=== PATIENT | female | born 1975 | race Caucasian/White ===

== ENCOUNTER 2023-04-17 17:00 | Outpatient (REF) | payer BC, SELFPAY ==
--- NOTE | ~2023-04-17 | MR_ITS ---
EXAMINATION: MR LUMBAR SPINE WITHOUT CONTRAST CLINICAL INFORMATION: Right L5 radiculopathy, foot drop, weakness COMPARISON: None TECHNIQUE: MRI of the lumbar spine was obtained using routine sequences without contrast. FINDINGS: Normal anatomic alignment. No suspicious marrow signal or focal osseous lesion. No significant endplate marrow edema. Small L1-L2 endplate Schmorl's nodes. The vertebral body heights are maintained. L4-L5 disc desiccation The conus medullaris terminates at the level of L2. The distal spinal cord is normal in appearance. The cauda equina nerve roots appear normal. No significant abnormalities of the paraspinal musculature. Limited evaluation of the intra-abdominal structures without significant abnormalities. The abdominal aorta is of normal contour and caliber.. 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 SPINAL LEVELS: T12-L1: No significant spinal canal or neural foraminal narrowing L1-L2: No significant spinal canal or neuroforaminal narrowing. L2-L3: No significant spinal canal or neuroforaminal narrowing. L3-L4: No significant spinal canal or neuroforaminal narrowing. L4-L5: No significant spinal canal or neuroforaminal narrowing. Shallow disc bulge with small superimposed central protrusion with slight caudal migration of disc material. Mild facet arthropathy. L5-S1: No significant spinal canal or neuroforaminal narrowing. MR/MR lumbar spine wo con IMPRESSION: Minimal degenerative changes of the lumbar spine without significant spinal canal stenosis, neural foraminal narrowing, or evidence of nerve impingement.
== END 2023-04-17 17:01 | disposition home or self-care (01) ==
LOC: HO.MRI 17:00
PROVIDERS: Visit Provider Internal Medicine
DX: M54.16 Radiculopathy, lumbar region (principal); M62.81 Muscle weakness (generalized); M21.379 Foot drop, unspecified foot
CPT/HCPCS: 72148

== ENCOUNTER 2023-10-11 08:47 | Emergency (ER) | payer OTHER, SELFPAY ==
--- NOTE | ~2023-10-11 | XR_ITS ---
EXAMINATION: XR HAND, RIGHT CLINICAL INFORMATION: Fracture COMPARISON: Prior x-ray same day earlier TECHNIQUE: PA, lateral, and oblique views of the right hand. FINDINGS: Reduced fracture of the left neck of the fifth metacarpal, cast in place. No new fractures. Residual anterior angulation at the fracture site. XR/XR hand RT min 3V IMPRESSION: * Partially reduced angulated boxer fracture. * Cast in place.
--- NOTE | ~2023-10-11 | XR_ITS ---
EXAMINATION: XR HAND, RIGHT CLINICAL INFORMATION: Injury COMPARISON: None available. TECHNIQUE: PA, lateral, and oblique views of the right hand. FINDINGS: Comminuted angulated fracture of the neck of the fifth metacarpal, boxer's fracture. This does not extend into an articular surface. There is surrounding soft tissue swelling. No other fractures. XR/XR hand RT min 3V IMPRESSION: Comminuted angulated Boxer's fracture of the neck of the fifth metacarpal.
[2023-10-11 08:57] VITALS: BP 135/83; PULSE 85; RESP 16; TEMP 36.8; O2SAT 99; BMI 21.8
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
[2023-10-11] MEDS: oxyCODONE HCl Immed Release 5 MG TABLET PO (09:56)
[2023-10-11] MEDS: Lidocaine HCl 1 % MPF 5 ML VIAL 10 ML SUBCUT (09:59)
[2023-10-11] MEDS: Ondansetron ODT 4 MG TAB.RAPDIS TRANSLINGU (09:59)
== END 2023-10-11 11:32 | disposition home or self-care (01) ==
PROVIDERS: Emergency Provider Student in an Organized Health Care Education/Training Program; PCP Family Medicine
DX: S62.336A Displaced fracture of neck of fifth metacarpal bone, right hand, initial encounter for closed fracture (principal); W22.09XA Striking against other stationary object, initial encounter; Y93.9 Activity, unspecified; Y92.9 Unspecified place or not applicable; Y99.9 Unspecified external cause status
CPT/HCPCS: 26605; 73130; 99283; 99284

== ENCOUNTER 2023-10-16 13:20 | Outpatient (AMB) | payer OTHER, SELFPAY ==
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
== END 2023-10-16 14:23 | disposition home or self-care (01) ==
PROVIDERS: PCP Family Medicine; Visit Provider Physician Assistant
DX: S62.316A Displaced fracture of base of fifth metacarpal bone, right hand, initial encounter for closed fracture (principal); W22.09XA Striking against other stationary object, initial encounter
CPT/HCPCS: 26600; 99204

== ENCOUNTER → 2023-10-16 13:20 | Outpatient (BNVA) | payer OTHER, SELFPAY | PROVIDERS: PCP Family Medicine; Visit Provider Physician Assistant | DX: S62.336A Displaced fracture of neck of fifth metacarpal bone, right hand, initial encounter for closed fracture (principal) | CPT/HCPCS: 26600; 29125 ==

== ENCOUNTER 2023-10-22 08:36 | Day surgery (SDC) | payer OTHER, SELFPAY ==
--- NOTE | 2023-10-21 11:55 | HO.ANESPROP2 ---
Documented by User: Gisell Simons NP 10/21/23 11:55 HPI - Anesthesia Eval Consult details Narrative: 47yo F for Right Fifth Metacarpal ORIF vs CR[facility] Active Problems Active Problems: All Active Problems (Updated 10/19/23 @ 22:16 by Chaya Booker PA-C) Gifty's metacarpal fracture, neck, closed (Acute) Past Medical History Medical History Menopause Surgical History Surgical History S/P cervical disc replacement (~2017) Hx of appendectomy (~1998) Social History Social History Patient Tobacco Use Status: Former Tobacco user Are you DNR?: No Advance Directives: No Advance Directives Information Provided: Yes Nutrition Risks: No Nutritional Risk FDLMP: been over 1-2 years Current occupational status: employed Meds Allergies Allergy/AdvReac Type Severity Reaction Status Date / Time levofloxacin [Levaquin] Allergy Unknown rash Verified 10/22/23 08:52 Home Medications Medication Instructions Recorded Confirmed Last Taken Type No Known Home Meds 10/19/23 10/22/23 Unknown History Assessment and Plan Assessment Anesthesia Assessment: Chart Reviewed Documented by User: Connie Burgos MD 10/22/23 09:34 PMFSH Past Medical History Medical History Menopause Family History Family history of problems with anesthesia: No Surgical History Surgical History S/P cervical disc replacement (~2017) Hx of appendectomy (~1998) Social History Social History Patient Tobacco Use Status: Former Tobacco user Are you DNR?: No Advance Directives: No Advance Directives Information Provided: Yes Nutrition Risks: No Nutritional Risk FDLMP: been over 1-2 years Current occupational status: employed Meds Allergies Allergy/AdvReac Type Severity Reaction Status Date / Time levofloxacin [Levaquin] Allergy Unknown rash Verified 10/22/23 08:52 Home Medications Medication Instructions Recorded Confirmed Last Taken Type No Known Home Meds 10/19/23 10/22/23 Unknown History Exam Airway Mallampati Class: II TM Dist: >3cm Neck ROM: Full Heart: rrr Lungs: cta Assessment and Plan Assessment Anesthesia Assessment: Anesthesia Plan Discussed Final Anesthetic Review Family History of Problems with Anesthesia: No NPO: Yes ASA Class: I Final Preanesthetic Review: No Changes in Pt Med Stat, Meds/Allgs Chart Reviewed, Consent Obtained/Reviewed and Anes Risks/Benef Reviewed Patient Risk: Low Procedure Risk: Low Anesthetic Plan Anesthetic Plan: GA Disposition: Standard PACU
--- NOTE | ~2023-10-22 | FL_ITS ---
EXAMINATION: XR FLUOROSCOPY WITH IMAGES CLINICAL INFORMATION: Fifth metacarpal ORIF, right. COMPARISON: None available. TECHNIQUE: Fluoroscopy Supervised By: Dr. Veronica Fragoso. Fluoroscopy Time: 10.92 seconds. Cumulative Dose: 0.3260 mGy. DAP: 0.0197 Gycm2. Images: 2. FINDINGS: Images demonstrate a wire or pin transfixing the fracture of the distal shaft of the right fifth metacarpal bone with improved alignment. FL/FL guidance in OR IMPRESSION: Fluoroscopic guidance for ORIF of right fifth metacarpal fracture.
[2023-10-22 09:11] VITALS: BP 106/74; PULSE 74; RESP 18; TEMP 36.8; O2SAT 99
[2023-10-22 09:12] VITALS: BMI 21.9
[2023-10-22 13:20] VITALS: BP 126/79; PULSE 64; RESP 16; TEMP 36.4; O2SAT 100
[2023-10-22 13:25] VITALS: BP 132/74; PULSE 61; RESP 16; O2SAT 100
[2023-10-22 13:30] VITALS: BP 129/63; PULSE 63; RESP 16; O2SAT 98
[2023-10-22 13:35] VITALS: BP 133/65; PULSE 77; RESP 16; O2SAT 98
[2023-10-22 13:50] VITALS: BP 120/72; PULSE 62; RESP 16; TEMP 36.1; O2SAT 98
--- NOTE | 2023-10-22 13:53 | MHC.SHP ---
Pre-Procedural Eval Section A Date of Service: 10/22/23 Changes since office visit: No Cold of Flu in the past 2 weeks, No New Medical Problems, No Changes in Medication and No Patient answered all questions The History & Physical has been completed within 30 days and I have reviewed it.: Yes Section B Chief Complaint: Unspecified fracture of fifth metacarpal bone Allergies: Allergies Allergy/AdvReac Type Severity Reaction Status Date / Time levofloxacin [Levaquin] Allergy Unknown rash Verified 10/22/23 08:52 Plan I have reviewed the history and physical and performed a pertinent physical examination on my patient. No changes have occurred unless specified. Time Spent With Patient Time: Total time managing care of this patient today ____ minutes.
--- NOTE | 2023-10-22 13:53 | W.PM.OPN ---
Operative Note Operative Note Date of Service: 10/22/23 Narrative: Operative Note Narrative: Preop diagnosis: 1. Right 5th Metacarpal shaft fracture Postop diagnosis: Same Procedure: 1. right 5th Metacarpal shaft fracture closed reduction percutaneous pinning 2. Ulnar nerve block Surgeon: Veronica Fragoso MD Anesthesia: General Anesthesia Findings: Metacarpal fracture Implants: 0.054 K-wires times 1 Tourniquet time: None EBL: Minimal Specimen: None Drains: None Complications: None Disposition: Brought to the recovery room in stable condition Plan: Follow-up in 10-14 days for a wound check, postop radiographs and for placement in a short-arm cast Anticipate K-wire removal in 4 weeks based on interval bony healing Educate the patient that full fracture healing anticipated in approximately 8-12 weeks. Indications: The patient is 47 years old with a right 5th metacarpal shaft fracture . The risks and benefits of operative treatment, including but not limited to risk of damage to blood vessels, nerves, tendons, infection, recurrence, delayed or nonunion of fracture, persistent pain or numbness, incomplete resolution of preoperative symptoms, or need for further surgery were discussed with the patient and they wished to proceed with surgery. Procedure: Once consent was obtained patient was brought back to the operating suite and placed in the operating table in a supine position. . Perioperative antibiotics and general anesthesia was administered by the anesthesia team. A tourniquet was applied to the proximal aspect of the right upper extremity and the limb was prepped and draped in a standard surgical fashion. Tourniquet was not inflated during the case. The FluoroScan was used during the case to assist with our fracture reduction and placement of all implants. A closed reduction was performed on the patient's right 5th metacarpal shaft fracture. I placed a single 0.05 for K-wire retrograde through the head of the 5th metacarpal extending proximally across the fracture site to the base of the metacarpal. Fracture alignment was assessed for both angular and rotational malalignment. Once satisfied with our fracture reduction and implant placement, the K-wires were bent and cut short and pin caps applied. Final fluoroscopic images were then obtained. The wounds were copiously irrigated with normal saline. An ulnar nerve block was then performed by infiltrating about the ulnar nerve at the wrist with some 0.5% plain Marcaine for postop pain control. A Sterile dressing and short volar splint was applied. The patient appears to have tolerated the procedure well and with no complications. All digits were well vascularized at the conclusion of the case.
== END 2023-10-22 14:47 | disposition home or self-care (01) ==
PROVIDERS: PCP Family Medicine; Visit Provider Orthopaedic Surgery
PROC: (CPT 26615; principal; 2023-10-22 10:20)
DX: S62.326A Displaced fracture of shaft of fifth metacarpal bone, right hand, initial encounter for closed fracture (principal); W22.09XA Striking against other stationary object, initial encounter; Y93.89 Activity, other specified; Y92.9 Unspecified place or not applicable; Y99.8 Other external cause status; Z98.890 Other specified postprocedural states
CPT/HCPCS: 26608; J0131; J0690; J1100; J2371; J2405; J2704; J2795; J3010

== ENCOUNTER → 2023-10-22 08:36 | Outpatient (BNV) | payer OTHER, SELFPAY | PROVIDERS: PCP Family Medicine; Visit Provider Orthopaedic Surgery | DX: S62.337A Displaced fracture of neck of fifth metacarpal bone, left hand, initial encounter for closed fracture (principal) | CPT/HCPCS: 26608 ==

== ENCOUNTER 2023-11-04 10:50 | Outpatient (REF) | payer OTHER, SELFPAY ==
--- NOTE | ~2023-11-04 | XR_ITS ---
EXAMINATION: XR HAND, RIGHT CLINICAL INFORMATION: Pain in right hand COMPARISON: None available. TECHNIQUE: PA, lateral, and oblique views of the right hand. FINDINGS: Interval placement of K wire fifth metacarpal transfixing an oblique fracture of the distal shaft of the metacarpal. This is not extend into the articular surface. Alignment is near-anatomic. Negative ulnar variance is noted. XR/XR hand RT min 3V IMPRESSION: Internal fixation with K wire of fracture of the distal shaft of the fifth metacarpal.
== END 2023-11-04 10:51 | disposition home or self-care (01) ==
LOC: HO.HOSX 10:50
PROVIDERS: Visit Provider Orthopaedic Surgery
DX: S62.336D Displaced fracture of neck of fifth metacarpal bone, right hand, subsequent encounter for fracture with routine healing (principal)
CPT/HCPCS: 73130

== ENCOUNTER 2023-11-04 14:21 | Outpatient (AMB) | payer OTHER, SELFPAY ==
--- NOTE | 2023-11-04 14:38 | MHC.OFFVIS ---
Intake Intake Visit Reasons: PO-Rt 5th Metacarpal ORIF vs CRPP 10/22/23 Intake Note: Daniela 47 yr old female presents today for her P/O visit f or her right 5th MC ORIF from DOS 10/22/23. States she has very little pain however has concern due to a little redness by her pin site. Xrays updated in office. Allergies levofloxacin [Levaquin] Allergy (Unknown, Verified 11/04/23 14:41) rash HPI PO-Rt 5th Metacarpal ORIF vs CRPP 10/22/23 HPI Details Daniela is a 47 year old right hand dominant woman who presents S/P right 5th metacarpal shaft CRPP, DOS: 10/22/23. She says she is doing well and has little pain, but she is concerned about some redness near her pin site. She says she was doing some cardio and she did get pretty sweaty. She says she is in the process of a divorce and has difficulties with her shared insurance coverage at this time. [facility] Medical History Menopause Surgical History S/P cervical disc replacement (~2017) Hx of appendectomy (~1998) Social History Patient Tobacco Use Status: Former Tobacco user Current occupational status: employed Review of Systems Const All systems reviewed & are unremarkable except as noted in HPI and below Physical Exam Const General: no acute distress and alert Orientation/consciousness: patient oriented x3 Neuro General: patient oriented x3 Extrem Other: The patient was alert oriented and in no acute distress The pin site is healing well with no swelling or drainage. She does have some mild erythema just proximal to the K-wire. Again recalling the history she did some cardio and got pretty sweaty Initially she had some stiffness in the middle, ring, and small finger PIP joints. We worked on ROM exercises today in clinic for at least 10 minutes Before leaving clinic her PIP motion was improved. No rotational mal-alignment Sensation is intact Cap refill is brisk Radiographs: 3 views of the right hand, with attention to the small finger, were taken and viewed by me today in clinic. They show a 5th metacarpal shaft fracture with satisfactory fracture reduction and position of single K-wire. There is some early evidence of interval bony healing seen on the oblique view Psych Appearance: grossly normal Affect: normal affect Attitude: cooperative Assessment & Plan Assessment & Plan (1) Yola metacarpal fracture, neck, closed: Code(s): S62.339A - Displaced fracture of neck of unspecified metacarpal bone, initial encounter for closed fracture Qualifiers: Encounter type: initial encounter Qualified Code(s): S62.339A - Displaced fracture of neck of unspecified metacarpal bone, initial encounter for closed fracture Plan Assessment & plan: 1. Right 5th metacarpal shaft fracture, S/P CRPP Original date of injury was 10/09/2023 DOS: 10/22/23 The patient appears to be doing well post-operatively I educated her about the post-operative course I explained the signs and symptoms of infection, if the patient develops any new or worsening erythema, drainage, pain, or warmth they should contact the clinic or attend the ED. Out of an abundance of caution due to some erythema about the pin-site, and her history of doing some cardio and getting sweaty with the cast on, she was placed on a 7-day course of PO Augmentin today. She was placed in a new finger spica cast, to be worn for the next 2 weeks. I discussed activity modifications, she is to lift nothing heavier than a cellphone for the next 4 weeks We worked on ROM exercises for more than 15 minutes today in clinic She will perform gentle finger ROM exercises at home I asked her to avoid any cardio exercises where she is likely to get sweaty while she has a pin in place and is in a cast. I explained that it will like take another 6-10 weeks for full healing She will follow up in 2 weeks for a ROM check, with X-rays, 3V R SF. Anticipate K-wire removal depending on bony healing Scribed for Veronica Fragoso MD by Abdirahman Siu, medical claims processor, on 11/04/23 at 2:52 PM, EST. Orders: Orders XR hand RT min 3V Today M79.641 - Pain in right hand Medications: New amoxicillin-pot clavulanate 875-125 mg 1 tab PO Q12H 14 tabs 0RF Coding Level of Care Code Global (57333) Diagnoses Closed boxer's fracture, initial encounter S62.339A Encounter type: initial encounter
== END 2023-11-04 15:52 | disposition home or self-care (01) ==
PROVIDERS: PCP Family Medicine; Visit Provider Orthopaedic Surgery
DX: S62.339A Displaced fracture of neck of unspecified metacarpal bone, initial encounter for closed fracture (principal)
CPT/HCPCS: 99024

== ENCOUNTER 2023-11-18 10:03 | Outpatient (REF) | payer OTHER, SELFPAY ==
--- NOTE | ~2023-11-18 | XR_ITS ---
EXAMINATION: XR HAND, RIGHT CLINICAL INFORMATION: Pain in right hand COMPARISON: Right hand 11/04/2023 TECHNIQUE: PA, lateral, and oblique views of the right hand. FINDINGS: K wire is seen in the fifth metacarpal transfixing a oblique fracture the distal shaft of the metacarpal. This is not extend into the articular surface. Alignment is near-anatomic. There is no change in position or alignment of the fracture fragments. The fracture lines are slightly blurred compared to the prior study. No kayla callus formation. Negative ulnar variance is noted. XR/XR hand RT min 3V IMPRESSION: Internal fixation with K wire of fracture of the distal shaft of the fifth metacarpal. No change in position or alignment of the fracture fragments.
== END 2023-11-18 10:04 | disposition home or self-care (01) ==
LOC: HO.HOSX 10:03
PROVIDERS: Visit Provider Orthopaedic Surgery
DX: M79.641 Pain in right hand (principal)
CPT/HCPCS: 73130

== ENCOUNTER 2023-11-18 11:24 | Outpatient (AMB) | payer OTHER, SELFPAY ==
--- NOTE | 2023-11-18 11:40 | A.OFFVIS_ITS ---
Intake Intake Visit Reasons: PO-Rt 5th Metacarpal ORIF vs CRPP 10/22/23 Intake Note: Daniela 47 yr old female presents today for her Post op visit for her post op visit for her Right 5th Metacarpal ORIF vs CRPP 10/22/23. Dressing removed in office and xrays updated. Allergies levofloxacin [Levaquin] Allergy (Unknown, Verified 11/18/23 11:59) rash HPI PO-Rt 5th Metacarpal ORIF vs CRPP 10/22/23 HPI Details Daniela is a 47 year old right hand dominant woman who presents S/P right 5th metacarpal shaft CRPP, DOS: 10/22/23. She says she is doing well but is concerned about some increased pain and redness near her pin site. She denies any drainage, fever, or chills. She has completed her course of PO Abx. She wants to know if she can return to exercising soon. [facility] Medical History Menopause Surgical History S/P cervical disc replacement (~2017) Hx of appendectomy (~1998) Social History Patient Tobacco Use Status: Former Tobacco user Current occupational status: employed Review of Systems Const All systems reviewed & are unremarkable except as noted in HPI and below Physical Exam Const General: no acute distress and alert Orientation/consciousness: patient oriented x3 Neuro General: patient oriented x3 Extrem Other: The patient was alert oriented and in no acute distress The pin site is healing well with no swelling or drainage. She does have some mild erythema just proximal to the K-wire. K-wire removed today, which she tolerated well She had some stiffness in her ring & small fingers We worked on ROM exercises and she will perform these at home No rotational mal-alignment Minimal tenderness over the fracture site. Sensation is intact Cap refill is brisk Radiographs: 3 views of the right hand, with attention to the small finger, were taken and viewed by me today in clinic. They show a 5th metacarpal shaft fracture with satisfactory fracture reduction, evidence of interval bony healing, and position of single K-wire. Psych Appearance: grossly normal Affect: normal affect Attitude: cooperative Assessment & Plan Assessment & Plan (1) Gifty's metacarpal fracture, neck, closed: Code(s): S62.339A - Displaced fracture of neck of unspecified metacarpal bone, initial encounter for closed fracture Qualifiers: Encounter type: initial encounter Qualified Code(s): S62.339A - Displaced fracture of neck of unspecified metacarpal bone, initial encounter for closed fracture Plan Assessment & plan: 1. Right 5th metacarpal shaft fracture, S/P CRPP Original date of injury was 10/09/2023 DOS: 10/22/23 K-wire removed: 11/18/23 The patient appears to be doing well post-operatively I educated her about the post-operative course I explained the signs and symptoms of infection, if the patient develops any new or worsening erythema, drainage, pain, or warmth they should contact the clinic or attend the ED. She was placed in a new finger spica splint, to be worn with daily activity and out of the house for the next 2 weeks She can remove this splint at home, when at rest or to work on ROM I discussed activity modifications, she is to lift nothing heavier than a cellphone for the next 2 weeks She will perform gentle finger ROM exercises at home I asked her to avoid any cardio exercises until her pin-site closes. She is still to avoid any weight-lifting exercises at this time I explained that it will like take another 4-8 weeks for full healing She will follow up in 2 weeks for a ROM check, with X-rays, 3V R SF. Scribed for Veronica Fragoso MD by Abdirahman Siu, medical assistant float, on 11/18/23 at 11:45 AM, EST. Orders: Orders XR hand RT min 3V Today M79.641 - Pain in right hand Coding Level of Care Code Global (29031) Diagnoses Closed boxer's fracture, initial encounter S62.339A Encounter type: initial encounter
== END 2023-11-18 12:00 | disposition home or self-care (01) ==
PROVIDERS: PCP Family Medicine; Visit Provider Orthopaedic Surgery
DX: S62.339A Displaced fracture of neck of unspecified metacarpal bone, initial encounter for closed fracture (principal)
CPT/HCPCS: 99024

== ENCOUNTER 2023-11-24 10:02 | Outpatient (AMB) | payer OTHER, SELFPAY ==
--- NOTE | 2023-11-24 10:07 | MHC.OFFVIS ---
Intake Intake Visit Reasons: PO-Rt 5th Metacarpal ORIF vs CRPP 10/22/23 Intake Note: Daniela 47 yr old female presents today for her Post op visit for her post op visit for her Right 5th Metacarpal ORIF vs CRPP 10/22/23. States she is having difficulty with active range of motion in pinky. Allergies levofloxacin [Levaquin] Allergy (Unknown, Verified 11/24/23 10:14) rash HPI PO-Rt 5th Metacarpal ORIF vs CRPP 10/22/23 HPI Details Daniela is a 47 year old right hand dominant woman who presents S/P right 5th metacarpal shaft CRPP, DOS: 10/22/23. She returns today as she is concerned about her lack of small finger ROM. She reports doing all her exercises at home but she is still unable to move her finger the way she wants. She is concerned about her finger swelling. She reports falling on 11/19/23 when getting out of her car and says she struck her hand, but denies any other injury. She says her pin-site gets more red at night time. She says she is currently on Flagyl Abx for an unrelated infection and she denies any drainage from her finger. [facility] Medical History Menopause Surgical History S/P cervical disc replacement (~2017) Hx of appendectomy (~1998) Social History Patient Tobacco Use Status: Former Tobacco user Current occupational status: employed Physical Exam Const General: no acute distress and alert Orientation/consciousness: patient oriented x3 Neuro General: patient oriented x3 Extrem Other: The patient was alert oriented and in no acute distress The pin site is well-healed with no erythema, swelling or drainage. She had some stiffness in her 5th MCP joint, with her ROM being 0-75 degrees When bringing her fingers into extension, she has an ~30 degree extension lag at the small finger PIP joint, which is easily reducible We worked on ROM exercises and she will perform these at home No rotational mal-alignment Minimal tenderness over the fracture site. Sensation is intact Cap refill is brisk Radiographs: 3 views of the right hand, with attention to the small finger, were taken and viewed by me today in clinic. They show a 5th metacarpal shaft fracture with satisfactory fracture alignment, unchanged from 11/18/23, and some evidence of interval bony healing. Psych Appearance: grossly normal Affect: normal affect Attitude: cooperative Assessment & Plan Assessment & Plan (1) Boxer's metacarpal fracture, neck, closed: Code(s): S62.339A - Displaced fracture of neck of unspecified metacarpal bone, initial encounter for closed fracture Qualifiers: Encounter type: initial encounter Qualified Code(s): S62.339A - Displaced fracture of neck of unspecified metacarpal bone, initial encounter for closed fracture Plan Assessment & plan: 1. Right 5th metacarpal shaft fracture, S/P CRPP Original DOI was 10/09/23 DOS: 10/22/23 K-wire removed: 11/18/23 The patient appears to be doing well post-operatively I educated her about the post-operative course I explained the signs and symptoms of infection, and she knows to contact the clinic if she has any concerns. She has a Velcro wrist splint that she can wear when out at the store for another week or so or in crowds. I did explain that for the most part she does not need to wear the splint any longer. I discussed activity modifications, she is to lift nothing heavier than a cellphone for the next 2 weeks She will perform gentle finger ROM exercises at home, 20x daily I ordered OT hand therapy to work on finger ROM She is still to avoid any weight-lifting exercises at this time She will follow up in 3 weeks for a ROM check, No x-rays unless she has pain Scribed for Veronica Fragoso MD by Abdirahman Siu medical pathology teacher, on 11/24/23 at 10:35 AM, EST. Orders: Orders XR hand RT min 3V Today M79.641 - Pain in right hand OT Evaluation and Treatment Today S62.339A - Displaced fracture of neck of unspecified metacarpal bone, initial encounter for closed fracture Coding Level of Care Code Global (82729) Diagnoses Closed boxer's fracture, initial encounter S62.339A Encounter type: initial encounter
== END 2023-11-24 11:12 | disposition home or self-care (01) ==
PROVIDERS: PCP Family Medicine; Visit Provider Orthopaedic Surgery
DX: S62.339A Displaced fracture of neck of unspecified metacarpal bone, initial encounter for closed fracture (principal)
CPT/HCPCS: 99024

== ENCOUNTER 2023-11-24 10:02 | Outpatient (REF) | payer OTHER, SELFPAY ==
--- NOTE | ~2023-11-24 | XR_ITS ---
EXAMINATION: XR HAND, RIGHT CLINICAL INFORMATION: Pain. COMPARISON: Radiograph right hand 11/18/2023. TECHNIQUE: PA, lateral, and oblique views of the right hand. FINDINGS: Interval removal of K wire at the level of the fifth metacarpal fracture. Stable appearance and alignment of the comminuted distal fifth metacarpal fracture with mild radial displacement of the distal fragment. Similar degree of osseous bridging. No significant callus formation. Decreased overlying soft tissue swelling. No new fractures. XR/XR hand RT min 3V IMPRESSION: 1. Interval removal of K wire. 2. Stable appearance and alignment of the comminuted distal fifth metacarpal fracture. No significant interval healing compared to 11/18/2023.
== END 2023-11-24 10:03 | disposition home or self-care (01) ==
LOC: HO.HOSX 10:02
PROVIDERS: PCP Family Medicine; Visit Provider Orthopaedic Surgery
DX: S62.336D Displaced fracture of neck of fifth metacarpal bone, right hand, subsequent encounter for fracture with routine healing (principal)
CPT/HCPCS: 73130

== ENCOUNTER 2023-12-16 14:19 | Outpatient (REF) | payer OTHER, SELFPAY | END 2023-12-16 14:20 | disposition home or self-care (01) | LOC: HO.HOSX 14:19 | PROVIDERS: PCP Family Medicine; Visit Provider Orthopaedic Surgery | DX: Z13.89 Encounter for screening for other disorder (principal) ==

== ENCOUNTER 2023-12-16 14:19 | Outpatient (AMB) | payer OTHER, SELFPAY ==
--- NOTE | 2023-12-16 14:23 | MHC.OFFVIS ---
Intake Intake Visit Reasons: PO-Rt 5th Metacarpal ORIF vs CRPP 10/22/23 Intake Note: Daniela 47 yr old female presents today for her Post op visit for her Right 5th Metacarpal ORIF vs CRPP 10/22/23 ROM check s/p O.T. Pt states she is still having some swelling in her 5th matacarpal. She states her range of motion is still limited but she is working on that with O.T. She states she wears a finger brace at night that O.T gave her. Allergies levofloxacin [Levaquin] Allergy (Unknown, Verified 12/16/23 14:24) rash HPI PO-Rt 5th Metacarpal ORIF vs CRPP 10/22/23 HPI Details Daniela is a 47 year old right hand dominant woman who presents S/P right 5th metacarpal shaft CRPP, DOS: 10/22/23. She returns today as she is still concerned about her lack of small finger ROM, as well as slight swelling. She reports doing all her exercises at home and she has been attending OT hand therapy. She denies any pain, and says her finger is only mildly tender. She says she wears a finger splint at night, which was provided by OT, but does not wear a splint during the day. She says this has been for ~2 days now She says OT is concerned she may have some scar tissue and they have been doing Ultrasound treatments for this PFSH Medical History Menopause Surgical History S/P cervical disc replacement (~2017) Hx of appendectomy (~1998) Social History Patient Tobacco Use Status: Former Tobacco user Current occupational status: employed Physical Exam Const General: no acute distress and alert Orientation/consciousness: patient oriented x3 Neuro General: patient oriented x3 Extrem Other: The patient was alert oriented and in no acute distress The pin site is well-healed with no erythema, swelling or drainage. When bringing her fingers into extension, she has an ~10 degree extension lag at the small finger PIP joint, which is easily reducible She has some mild trouble ABducting her small finger She can bring her other fingers closed to a fist without difficulty No rotational mal-alignment No tenderness over the fracture site. Sensation is intact Cap refill is brisk Psych Appearance: grossly normal Affect: normal affect Attitude: cooperative Assessment & Plan Assessment & Plan (1) Boxer's metacarpal fracture, neck, closed: Code(s): S62.339A - Displaced fracture of neck of unspecified metacarpal bone, initial encounter for closed fracture Qualifiers: Encounter type: initial encounter Qualified Code(s): S62.339A - Displaced fracture of neck of unspecified metacarpal bone, initial encounter for closed fracture Plan Assessment & plan: 1. Right 5th metacarpal shaft fracture, S/P CRPP Original DOI was 10/09/23 DOS: 10/22/23 K-wire removed: 11/18/23 The patient appears to be doing well post-operatively I educated her about the post-operative course She has been working with OT hand therapy and performing ROM exercises at home She was given a note for work to return to full duty on 12/21/23, with time off to attend hand therapy. 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 She says she is able to perform all her duties She will follow up prn Scribed for Veronica Fragoso MD by Abdirahman Siu, biomedical service engineer, on 12/16/23 at 2:40 PM, EST. Coding Level of Care Code Global (30697) Diagnoses Closed boxer's fracture, initial encounter S62.339A Encounter type: initial encounter
== END 2023-12-16 14:40 | disposition home or self-care (01) ==
PROVIDERS: PCP Family Medicine; Visit Provider Orthopaedic Surgery
DX: S62.339A Displaced fracture of neck of unspecified metacarpal bone, initial encounter for closed fracture (principal)
CPT/HCPCS: 99024

== ENCOUNTER 2024-01-06 07:00 | Outpatient (RCR) | payer OTHER, SELFPAY ==
--- NOTE | 2023-12-11 07:39 | MHC.OT.EP ---
[address] [phone] Occupational Therapy Plan of Care Patient Name: Daniela Regan Date of Evaluation: 12/09/23 Diagnosis: S/P R 5TH METACARPAL CRPP Pain Location: R 5TH MCP, DORSAL ASPECT PAINFREE AT REST 2/10 WITH USE Pain Score: 0-2/10 Pain Scale Used: Numeric (0 - 10) Aggravating Factors: STIFFNESS IN AM UPON WAKING Alleviating Factors: MOTRIN/TYLENOL PRN, NOT CURRENTLY ICING/ HEATING Assessment: MS REGAN IS SIX WEEKS POST OP FROM R SMALL FINGER METACARPAL CRPP WITH DR CHEN ON 10/22/23. HER K-WIRE WAS REMOVED ON 11/18/23. SHE REPORTS LOW PAIN AND EMERGING ABILITIES TO COMPLETE IADLs. SHE REMAINS OUT OF WORK. SHE IS EXPERIENCING DIFFICULTIES WITH MCP ROM AND MAY BENEFIT FROM CUSTOM SPLINTING TO OPTIMIZE FUNCTIONAL ABILITIES. A 32% LIMITATION WAS REPORTED PER THE QUICK DASH ASSESSMENT. ONGOING SKILLED OT IS WARRANTED TO ADDRESS THE AREAS MENTIONED BELOW AND IMPROVE QOL. Frequency and Duration: The patient will be seen 1-2X/WEEK FOR 5 WEEKS Short Term Goals: IND HEP IND EDEMA MANAGEMENT STRATEGIES IMPROVE DEXTERITY TO FUNCTIONAL LEVEL PER FUNTIONAL DEXTERITY TEST [facility]cf Goals: ACHIEVE TIP TO DPC OF R SF R GROSS GRASP >30 POUNDS TOLERATE WORK RELATED TASKS MOSTLY PAINFREE QUICK DASH <15% Treatment Plan: Therapeutic Exercise Therapeutic Activity Home Exercise Program Splinting Neuro Re-ed Patient Education Desensitization/Sensory Re-ed Edema Control ADL Training Ultrasound NMES Iontophoresis Paraffin Fluidotherapy MHP Cold Packs Joint Mobilization Soft Tissue Mobilization Kinesiotaping Other (see comments) Electronically Signed By: GILBERTO BURT OTR/L Please Sign and return to therapist. Thank you once again for your referral.
--- NOTE | 2023-12-15 09:25 | MHC.OT.OP ---
[address] [phone] F: [phone] Occupational Therapy Progress Note Patient Name: Daniela Regan Diagnosis: S/P R 5TH METACARPAL CRPP Date of Surgery: 10/22/23 Date of Evaluation: 12/09/23 Treatments to Date: 3 Cancellations to Date: 0 No Shows to Date: 0 Subjective: A lot of tightness in my hand Pain Score: 2 Pain Location: Right dorsal hand Objective Measures: Full small finger tip-palm Full passive small finger extension, limited active ext D5 MCP -18 degree ext lag D5 PIP -16 degree ext lag Status: Progressing Assessment: Daniela is now about 8 weeks post-op right D5 CRPP s/p Boxer's Fx. She has good carry over w/ HEP and techniques for edema and scar management, but still localized swelling over dorsal hand, scarring likely limiting full active digit extension. She has good range with flexion and progressing w/ active extension. We are trialling nighttime extension orthosis, but also implementing active and passive scar and tendon mobilization. Short Term Goals: IND HEP IND EDEMA MANAGEMENT STRATEGIES IMPROVE DEXTERITY TO FUNCTIONAL LEVEL PER FUNTIONAL DEXTERITY TEST Half-Way Goals: ACHIEVE TIP TO DPC OF R SF R GROSS GRASP >30 POUNDS TOLERATE WORK RELATED TASKS MOSTLY PAINFREE QUICK DASH <15% Frequency and Duration: The patient will be seen 1-2X/WEEK FOR 5 WEEKS Treatment Plan: Therapeutic Exercise Therapeutic Activity Home Exercise Program Splinting Patient Education Edema Control ADL Training Ultrasound Paraffin Fluidotherapy MHP Cold Packs Joint Mobilization Soft Tissue Mobilization Kinesiotaping Electronically Signed By: Isabelle Sena OTR/L CHT Reviewed/agree with student documentation: N/A Therapist:
--- NOTE | 2024-01-06 08:22 | MHC.OT.DC ---
[address] [phone] F: [phone] Occupational Therapy Discharge Note Patient Name: Daniela Regan Provider: Veronica Fragoso MD Diagnosis: S/P R 5TH METACARPAL CRPP Date of Surgery: 10/22/23 Date of Evaluation: 12/09/23 Date of Discharge: 01/06/24 Treatments to Date: 8 Cancellations to Date: 0 No Shows to Date: 0 Discharge Status: Achieved Goals Improved Function Independent with HEP Discharge Summary: Daniela is now about 2.5 months s/p right D5 MC CRPP and she is doing very well. She has good range of motion with full composite it project coordinator, and MCP extension to neutral. Still with mild edema and firm scar tissue, but she has good understanding of home program for cont'd management and progression. No further OT services indicated at this time. Electronically Signed By: Isabelle Sena OTR/L CHT Reviewed/agree with student documentation: N/A Therapist: Please Sign and return to therapist, thank you for your referral.
== END 2024-01-06 08:22 | disposition home or self-care (01) ==
LOC: HO.OT 07:00
PROVIDERS: PCP Family Medicine; Visit Provider Orthopaedic Surgery
DX: S62.336A Displaced fracture of neck of fifth metacarpal bone, right hand, initial encounter for closed fracture (principal)
CPT/HCPCS: 29130; 97035; 97110; 97140; 97166; 97760